=== PATIENT | male | born 1975 | race Caucasian/White ===

== ENCOUNTER → 2016-12-30 | Day surgery (SDC) | payer OTHER ==
[~2016-12-30] VITALS: Ht 182.9 cm; Wt 78.0 kg
[~2016-12-30] MED LIST: 0.9% Sodium Chloride 1,000 ML IV SCH; ALBU8.5H2 INHALATION; CYCL10TA9 PO; FLUT9.9S NS; LORA10CA9 PO; Sodium Chloride LOK Flush 10 mL Syringe IV PRN; fentaNYL-PF 50 mCg/mL 2 mL Inj IVPUSH PRN
[2016-12-30 09:56] VITALS: BP 114/74; PULSE 62; RESP 14; O2SAT 99
[2016-12-30 10:55] VITALS: BP 110/61; PULSE 52; RESP 15; O2SAT 97
[2016-12-30 11:11] VITALS: BP 99/54; PULSE 61; RESP 16; O2SAT 99
--- NOTE | 2016-12-30 13:47 | ENDO ---
[address] [address] ENDOSCOPY PROCEDURE PATIENT: ALEXIS VIVAS : 1975 MR#: [id number] ADMIT: 12/30/2016 JOB ID: [id number] DATE OF SERVICE: 12/30/2016 FIRST PROCEDURE PERFORMED: Esophagogastroduodenoscopy. INDICATION: Gastroesophageal reflux. ASA CLASSIFICATION: The patient's ASA classification is I. MALLAMPATI SCORE: Mallampati score is 1. MEDICATIONS: 1. Versed 8 mg. 2. Fentanyl 150 mcg. It was used also for colonoscopy as well. PROCEDURE DETAILS: After informed consent was obtained, the patient was brought into the GI suite, where he was placed on oxygen via nasal cannula and monitored with continuous pulse oximeter, telemetry, and blood pressure monitoring. A time-out was performed. Then, he was placed in the left lateral decubitus position, and medications were administered for sedation. A bite block was placed. A standard EGD scope was then inserted through the bite block and advanced under direct visualization to the second portion of the duodenum without difficulty. FINDINGS: 1. In the second portion of the duodenum there was a nodule that measured approximately 4-5 mm. Nodule was removed with a cold biopsy forceps. 2. Multiple random biopsies were obtained in the duodenum. 3. Normal appearing pylorus, antrum and gastric body. 4. Retroflexed views in the gastric body revealed normal appearing cardia and fundus. 5. Multiple random biopsies were obtained throughout the antrum and body of the stomach. 6. The GE junction was at approximately 40 cm. In the distal esophagus there was also ulceration, as well as edema, arising from the GE junction and extending up to approximately 38 cm. Appearance was consistent with LA class A ulcerative esophagitis. The remainder of esophagus otherwise unremarkable. IMPRESSION: 1. Nodule in the second portion of the duodenum. 2. Ulcerative esophagitis. RECOMMENDATIONS: 1. Await biopsy results. 2. Start PPI daily. 3. Reflux precautions. COMPLICATIONS: None. ESTIMATED BLOOD LOSS: Less than 5 mL. SECOND PROCEDURE PERFORMED: Colonoscopy. INDICATION: Rectal bleeding. ASA CLASSIFICATION, MALLAMPATI SCORE AND MEDICATIONS: Please see above for ASA classification, Mallampati score and medications. INSTRUMENT USED: [id number]. PREPARATION QUALITY: Good. PROCEDURE DETAILS: After completion of the EGD exam, the patient was turned and then a digital rectal exam was performed which was unremarkable. The colonoscope was then inserted into the rectum and advanced under direct visualization to the terminal ileum, which was identified by the presence of the ileocecal valve and villous appearing mucosa of the terminal ileum. Once the terminal ileum was reached, the colonoscope was withdrawn back into the rectum as the mucosa and lumen were examined. In the rectum, retroflexion was performed. Following retroflexion, remaining air in the rectum was suctioned, and procedure was completed. FINDINGS: 1. In the ascending colon there were two diminutive polyps. They were removed with a cold biopsy forceps. 2. In the transverse colon there was an approximately 4 mm sessile polyp. It was removed with a cold snare. 3. Retroflexed views in the rectum revealed moderate to large internal hemorrhoids. IMPRESSION: 1. Two ascending colon polyps. 2. Transverse colon polyp. 3. Internal hemorrhoids. RECOMMENDATIONS: 1. Fiber-rich diet. 2. Repeat colonoscopy in three years. 3. Anusol suppositories if rectal bleeding persists. COMPLICATIONS: None. ESTIMATED BLOOD LOSS: Less than 5 mL.
== END | disposition home or self-care (01) ==
LOC: END 00:14
PROVIDERS: ATTEND Internal Medicine Gastroenterology
DX: D12.2 Benign neoplasm of ascending colon (principal); D12.3 Benign neoplasm of transverse colon; K64.8 Other hemorrhoids; K20.9 Esophagitis, unspecified; K31.89 Other diseases of stomach and duodenum; K92.1 Melena; K21.9 Gastro-esophageal reflux disease without esophagitis; J45.909 Unspecified asthma, uncomplicated
CPT/HCPCS: 43239; 45380; 45385; 99153; G0500; J2250; J3010; J7030